=== PATIENT | female | born 1980 | race American Indian/Alaskan Native ===

== ENCOUNTER 2020-11-06 16:36 | Emergency (ER) | payer SELFPAY ==
[2020-11-06 18:00] VITALS: BP 114/81
--- NOTE | 2020-11-06 19:08 | Emergency Department Report ---
ED Female HPI - General Chief complaint: Rectal Pain Stated complaint: HEMMROIDS/HURTS DURING SEX Time Seen by Provider: 11/06/20 19:00 Source: patient Mode of arrival: Ambulatory Limitations: No Limitations - History of Present Illness Initial comments: Patient is a 40-year-old female presents emergency room with complaints of dyspareunia that occurred today. She denies any vaginal bleeding, dysuria, abdominal pain, urinary frequency, dark urine or odor to the urine, nausea, vomiting, diarrhea, fever. Patient states that she is also had a hemorrhoid present for a few days. She states that she just started using Preparation H. She denies any rectal bleeding, rectal pain, abdominal pain, melena, hematochezia. No past medical history. No allergies medications. She does not have an PIER WORKER. She has not had a Pap smear in several years. She states that she just made an appointment for an PIER WORKER through the health department and her appointment is in December. - Related Data Allergies Allergy/AdvReac Type Severity Reaction Status Date / Time No Known Allergies Allergy Unverified 11/06/20 17:58 ED Review of Systems ROS: Stated complaint: HEMMROIDS/HURTS DURING SEX Other details as noted in HPI Comment: All other systems reviewed and negative ED Past Medical Hx - Past Medical History Previous Medical History?: No - Surgical History Past Surgical History?: No ED Physical Exam - General Limitations: No Limitations General appearance: alert, in no apparent distress - Head Head exam: Present: atraumatic, normocephalic - Eye Eye exam: Present: normal appearance - ENT ENT exam: Present: mucous membranes moist - Respiratory Respiratory exam: Present: normal lung sounds bilaterally. Absent: respiratory distress, wheezes, rales, rhonchi, stridor, chest wall tenderness, accessory muscle use, decreased breath sounds, prolonged expiratory - Cardiovascular Cardiovascular Exam: Present: regular rate, normal rhythm, normal heart sounds. Absent: systolic murmur, diastolic murmur, rubs, gallop - GI/Abdominal GI/Abdominal exam: Present: soft, normal bowel sounds. 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 She denies any vaginal bleeding, dysuria, abdominal pain, urinary frequency, dark urine or odor to the urine, nausea, vomiting, diarrhea, fever. Patient states that she is also had a hemorrhoid present for a few days. She states that she just started using Preparation H. She denies any rectal bleeding, rectal pain, abdominal pain, melena, hematochezia. No past medical history. No allergies medications. She does not have an PIER WORKER. She has not had a Pap smear in several years. She states that she just made an appointment for an PIER WORKER through the health department and her appointment is in December. vitals are normal. on exam: small one cm non thrombosed hemorrhoid present to the 3 oclock position, pitching coach:ARTUR olvera. Patient is not having any symptoms of UTI or STD at this time, she states that she had one episode of dyspareunia today while engaging in intercourse but has otherwise not had any symptoms, she denies any abdominal pain or pelvic pain currently. 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 advised pt please use preparation H over the counter and wipes. please use stool softener. follow up with a primary care doctor. follow up with an PIER WORKER you need to have a full evaluation. return to the emergency room for any new or worsening symptoms. Patient has no emergent medical condition at this time, medical screen examination performed there is no threat to life or limb at this time, patient given the appropriate resources, discussed the importance of follow-up, discussed return precautions Critical care attestation.: If time is entered above; I have spent that time in minutes in the direct care of this critically ill patient, excluding procedure time. ED Disposition Clinical Impression: Dyspareunia, External hemorrhoid Disposition: MED SCREENING EXAM-LEFT Is pt being admited?: No Does the pt Need Aspirin: No Condition: Stable Instructions: Dyspareunia, Female, Hemorrhoids, [id number] Additional Instructions: please use preparation H over the counter and wipes. please use stool softener. follow up with a primary care doctor. follow up with an PIER WORKER you need to have a full evaluation. return to the emergency room for any new or worsening symptoms. Referrals: PRIMARY CARE, [Primary Care Provider] - 2-3 Days [facility] [Provider Group] - 2-3 Days [facility], [LAB/CONTRACT] - 2-3 Days [facility] [Outside] - 2-3 Days [facility] [Provider Group] - 2-3 Days Forms: Work/School Release Form(ED) Time of Disposition: 19:01 Print Language: CITIZEN OF [place]
== END 2020-11-06 19:15 | disposition left against medical advice (07) ==
LOC: ED 16:36
DX: K64.9 Unspecified hemorrhoids (principal); Z53.21 Procedure and treatment not carried out due to patient leaving prior to being seen by health care provider

== ENCOUNTER 2020-12-04 07:27 | Emergency (ER) | payer SELFPAY ==
[2020-12-04 07:38] VITALS: BP 126/80
--- NOTE | 2020-12-04 07:44 | Emergency Department Report ---
Chief Complaint: Headache Stated Complaint: requesting covid test - [facility] History of Present Illness: 40-year-old -[place] female presents to the emergency room requesting a Covid test. We do not do Covid testing and she says she is has a headache. Patient reports to me that her job is requesting her to have a follow-up in the emergency room because she has a headache. Patient states her headaches are like to. No nausea no vomiting no diarrhea no loss of taste or smell no abdominal pain no change in vision no dizziness. - Exam Vital Signs: Vital Signs 12/04/20 07:32 Temperature 98.0 F Pulse Rate 69 Respiratory 18 Rate Blood Pressure 126/80 O2 Sat by Pulse 100 Oximetry Physical Exam: Alert and oriented x3 no acute distress nontoxic in appearance Effortless breathing no accessory muscles used no distress Ambulatory without difficulties Cranial Nerves: (II, III, IV, ) Visual acuity 20/20 bilaterally. Visual lua normal in all quadrants. Pupils are round, reactive to light and accommodation. Extraocular movements are intact without ptosis. (V) Facial sensation is intact to bilaterally to dull, sharp, and light touch stimuli. (VII) Facial muscle strength is normal and equal bilaterally. (VIII) Hearing is normal bilaterally. (IX, X) Palate and uvula elevate symmetrically, with intact gag reflex. Voice is normal. (XI) Shoulder shrug strong, and equal bilaterally. (XII) Tongue protrudes midline and moves symmetrically. Sensation: Sensation is intact bilaterally to pain and light touch. Two-point discrimination is intact. Motor: Good muscle tone. Strength is 5/5 bilaterally at the deltoid, biceps, triceps, quadriceps, and hamstrings. Cerebellar: Tsiypq-[id number] and txrd-[id number] test normal bilaterally. Balances with eyes closed (Romberg). Rapid alternating movements normal. Gait is steady with a normal base. Coordination is intact as measured by heel walk and toe walk. MSE screening note: Focused history and physical exam performed. Due to findings the following was ordered: 40-year-old -[place] female presents to the emergency room requesting a Covid test. We do not do Covid testing and she says she is has a headache. Patient reports to me that her job is requesting her to have a follow-up in the emergency room because she has a headache. Patient states her headaches are like to. No nausea no vomiting no diarrhea no loss of taste or smell no abdominal pain no change in vision no dizziness. Discussed with patient she can take Tylenol or ibuprofen or Aleve for headache drink plenty of fluids and given her a handout to Covid testing facilities. ED Disposition for MSE Disposition: MED SCREENING EXAM-LEFT Is pt being admited?: No Does the pt Need Aspirin: No Condition: Stable Instructions: General Headache Without Cause Additional Instructions: Recommend Tylenol ibuprofen or Aleve for pain. Increase your fluid intake. Follow-up with your primary care provider if it tends to be persistent. You can go to the nearby Covid stations and [facility] area for Covid testing. Referrals: [facility] [Provider Group] - 3-5 Days Forms: Work/School Release Form(ED)
== END 2020-12-04 07:51 | disposition left against medical advice (07) ==
LOC: ED 07:27
DX: Z00.8 Encounter for other general examination (principal); Z53.21 Procedure and treatment not carried out due to patient leaving prior to being seen by health care provider

== ENCOUNTER 2021-01-17 19:42 | Emergency (ER) | payer SELFPAY ==
[2021-01-17 22:35] VITALS: BP 104/70
--- NOTE | 2021-01-17 22:38 | Emergency Department Report ---
- General Chief complaint: Skin Rash Stated complaint: BED BUGS Time Seen by Provider: 01/17/21 22:33 Source: patient Mode of arrival: Ambulatory Limitations: No Limitations - History of Present Illness Initial comments: 40-year-old -[place] female presents to the emergency room stating that she has bedbug bites all over her body. Patient states she had noticed it about 2 days ago. She states that she is living in a hotel with her when she started noticing bedbugs. Patient states that they are not painful do not itching. She denies any pain at this time. No nausea no vomiting no fever chills. complaint: insect bite/sting Onset/Timin -: days(s) Tetanus Up to Date: no Location: generalized Severity: mild Severity scale (0 -10): 0 Consistency: constant Improves with: none Worsens with: none Associated symptoms: denies other symptoms Treatments Prior to Arrival: none - Related Data Allergies Allergy/AdvReac Type Severity Reaction Status Date / Time No Known Allergies Allergy Verified 12/04/20 07:29 Abscess Boil HPI - HPI Chief Complaint: Skin Rash Stated Complaint: BED BUGS Time Seen by Provider: 01/17/21 22:33 Allergies/Adverse Reactions: Allergies Allergy/AdvReac Type Severity Reaction Status Date / Time No Known Allergies Allergy Verified 12/04/20 07:29 ED Review of Systems ROS: Stated complaint: BED BUGS Other details as noted in HPI Comment: All other systems reviewed and negative ED Past Medical Hx - Past Medical History Previous Medical History?: No - Surgical History Past Surgical History?: No - Social History Smoking Status: Never Smoker Substance Use Type: None ED Physical Exam - General Limitations: No Limitations General appearance: alert, in no apparent distress - Head Head exam: Present: atraumatic, normocephalic - Eye Eye exam: Present: normal appearance - ENT ENT exam: Present: normal exam, normal external ear exam - Neck Neck exam: Present: normal inspection, full ROM - Respiratory Respiratory exam: Absent: accessory muscle use - Cardiovascular Cardiovascular Exam: Present: regular rate - Extremities Exam Extremities exam: Present: other (Multiple bite duff no drainage nonerythematous no swelling nontender to touch) - Back Exam Back exam: Present: normal inspection - Neurological Exam Neurological exam: Present: alert, oriented X3, normal gait - Psychiatric Psychiatric exam: Present: normal affect, normal mood - Skin Skin exam: Present: warm, dry, intact, other (Lower extremities bilateral, multiple bites nonerythematous nonedematous no drainage no tenderness to touch). Absent: rash ED Medical Decision Making - Medical Decision Making 40-year-old -[place] female presents to the emergency room stating that she has bedbug bites all over her body. Patient states she had noticed it about 2 days ago. She states that she is living in a hotel with her when she started noticing bedbugs. Patient states that they are not painful do not itching. She denies any pain at this time. No nausea no vomiting no fever chills. Discussed the patient to avoid being around bedbugs. Keep her bites clean and dry can place [id number] triple antibiotics. Critical care attestation.: If time is entered above; I have spent that time in minutes in the direct care of this critically ill patient, excluding procedure time. ED Disposition Clinical Impression: Bedbug bite Disposition: DC-01 TO HOME OR SELFCARE Is pt being admited?: No Does the pt Need Aspirin: No Condition: Stable Instructions: Insect Bite, Adult, [id number] Additional Instructions: Keep site clean and dry. You can use [id number] triple antibiotic ointment. Avoid bugs. Referrals: PRIMARY CARE, [Primary Care Provider] - 3-5 Days [facility] [Provider Group] - 3-5 Days
== END 2021-01-17 23:15 | disposition home or self-care (01) ==
LOC: ED 19:42
DX: S60.562A Insect bite (nonvenomous) of left hand, initial encounter (principal); W57.XXXA Bitten or stung by nonvenomous insect and other nonvenomous arthropods, initial encounter; Y93.89 Activity, other specified; Y92.89 Other specified places as the place of occurrence of the external cause; Y99.8 Other external cause status
CPT/HCPCS: 99282